=== PATIENT | female | born 1980 | race Caucasian/White ===

== ENCOUNTER → 2023-09-09 17:05 | Outpatient (REF) | payer OTHER, SELFPAY | LOC: WDC 17:05 | PROVIDERS: ATTENDING PHYSICIAN Nurse Practitioner Family; FAMILY PHYSICIAN Physician Assistant Medical | DX: Z12.31 Encounter for screening mammogram for malignant neoplasm of breast (principal) | CPT/HCPCS: 77063; 77067 ==

== ENCOUNTER → 2023-10-01 15:11 | Outpatient (REF) | payer OTHER, SELFPAY | LOC: RAD 15:11 | PROVIDERS: ATTENDING PHYSICIAN Nurse Practitioner Family; FAMILY PHYSICIAN Family Medicine | DX: N93.9 Abnormal uterine and vaginal bleeding, unspecified (principal) | CPT/HCPCS: 76830; 76856 ==

== ENCOUNTER → 2024-09-11 19:25 | Outpatient (REF) | payer OTHER, SELFPAY | LOC: WDC 19:25 | PROVIDERS: ATTENDING PHYSICIAN Physician Assistant Medical | DX: Z12.31 Encounter for screening mammogram for malignant neoplasm of breast (principal) | CPT/HCPCS: 77063; 77067 ==